=== PATIENT | male | born 1945 | race Caucasian/White ===

== ENCOUNTER → 2016-08-18 | Outpatient (CLI) | payer BC ==
[~2016-08-18] MED LIST: IBUP-103 PO
[2016-08-18 13:10] LABS: LYME DISEASE AB IGG NEG (NEG); LYME DISEASE AB IGM NEG (NEG)
== END | disposition home or self-care (01) ==
LOC: C.LAB 11:34
PROVIDERS: ATTEND Family Medicine
DX: S30.861A Insect bite (nonvenomous) of abdominal wall, initial encounter (principal); X58.XXXA Exposure to other specified factors, initial encounter

== ENCOUNTER → 2017-07-22 | Outpatient (CLI) | payer BC ==
--- NOTE | 2017-07-22 13:10 | DIAGNOSTIC IMAGING REPORT ---
RIGHT LOWER EXTREMITY VENOUS DOPPLER HISTORY: Right leg pain and swelling. COMPARISON STUDY: None. FINDINGS: There is normal compressibility, flow, and augmentation within the right lower extremity deep venous system. 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 IMPRESSION: No DVT within the right lower extremity. 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 Electronically signed by: Ashkan Linder M.D. 07/22/2017 1:09 PM Dictated Date/Time: 07/22/2017 1:08 PM
== END | disposition home or self-care (01) ==
LOC: C.ULTRBC 12:42
PROVIDERS: ATTEND Student in an Organized Health Care Education/Training Program
DX: Z86.79 Personal history of other diseases of the circulatory system (principal); I82.811 Embolism and thrombosis of superficial veins of right lower extremity

== ENCOUNTER 2024-02-11 08:26 | Observation (INO) ==
--- NOTE | 2024-01-03 15:56 | PAT Medication Instructions ---
Medication Instructions Date of Service January 03, 2024 Home Medications ibuprofen 200 mg tablet (Advil) 200 mg PO Q6H PRN Pain sjqjdxjcdouw-zadxkahy-msbkgw tablet 1 tab PO QAM triamcinolone acetonide 0.1 % topical cream 1 applic topical BID PRN tick bites Bio-Guard 1 dose PO UD PRN gerd ASK your surgeon for instructions ibuprofen 200 mg tablet (Advil) 200 mg PO Q6H PRN Pain STOP taking 2 weeks before surgery (or as soon as possible if surgery is within 2 weeks) Bio-Guard 1 dose PO UD PRN gerd fmdgdigjlvtb-jcrgsiop-vvsrnk tablet 1 tab PO QAM STOP taking 24 hours before surgery triamcinolone acetonide 0.1 % topical cream 1 applic topical BID PRN tick bites MORNING OF SURGERY: NOTHING TO EAT OR DRINK AFTER MIDNIGHT Other Notes If you have any questions please call us at [phone] or [phone] or [phone] or [phone]
--- NOTE | 2024-01-13 14:18 | Anesthesiology Consultation ---
Date of Service January 13, 2024 Assessment & Plan (1) Encounter for pre-operative examination: - message sent to OR and surgeon's office regarding patient's reported history of syncope with initial attempts to be ambulatory after surgery. - Outpatient joint assessment: Patient is currently scheduled for inpatient pathway. If re-evaluated and patient/surgeon requests outpatient pathway, patient is not acceptable candidate for outpatient joint program from anesthesia standpoint. Chart Review Chart Review: Acceptable Risk for Surgery and Patient seen in Pre Admission Testing Teaching & Discussion Pre-Anesthesia Teaching/Discussion Notes: Instructed NPO after midnight before surgery, except medications with 15 cc of water. Medication instructions provided according to the PAT guidelines. History Surgery Operation Date: 02/11/24 08:50 Proposed Procedures p Left Total Knee Arthroplasty - Raghav Galaviz MD Height/Weight Height: 6 ft 1 in Weight: 101.6 kg Allergies Allergy/AdvReac Type Severity Reaction Status Date / Time No Known Allergies Allergy Verified 01/01/24 15:14 Medications Home Medications Medication Instructions Recorded Confirmed Last Taken ibuprofen 200 mg tablet (Advil) 200 mg PO Q6H PRN Pain 10/23/21 01/01/24 Unknown dmotvewfaepe-ogrtkvsm-mafrmd tablet 1 tab PO QAM 10/23/21 01/01/24 10/26/21 triamcinolone acetonide 0.1 % 1 applic topical BID PRN tick bites 10/23/21 01/01/24 Unknown topical cream Bio-Guard 1 dose PO UD PRN gerd 01/01/24 01/01/24 Unknown Past Medical History Medical History (Updated 01/15/24 @ 09:55 by Corrie Stallings PA-C) Chronic back pain GERD (gastroesophageal reflux disease) infrequent History of blood transfusion [place]-operatively History of prostate cancer (~2006) radiation and surgery-completed radiation 2008 History of syncope history of syncope after surgery when first having attempts at standing and walking post-op IBS (irritable bowel syndrome) Osteoarthritis Patient denies h/o stroke, seizures, heart attack, heart failure, DM, HTN, or blood clots/DVTs. Exercise / Class Metabolic Activity II 4-5 Yardwork/Stairs/Walk up hill (denies chest discomfort or shortness of breath with one flight of stairs) Past Family History Family History Brother Prostate cancer Brother Prostate cancer Past Surgical History Surgical History Cyst of soft tissue (2021) [place]-Anal Fusion of spine x2 (lumbar area/hardware intact) H/O non-cataract eye surgery right eye>retina repair History of carpal tunnel release right/left History of colonoscopy History of esophagogastroduodenoscopy (EGD) History of tooth extraction Hx of arthroscopic knee surgery right/left Hx of cataract extraction right Hx of prostatectomy Hx of vasectomy Past Anesthesia History No Family Hx of Anesthesia Complications and Other (history of syncope after surgery when first having attempts at standing and walking) History of PONV No Hx of PONV and No Hx of Motion Sickness Social History Smoking Status: Current some day smoker tobacco type: cigars Smoking cigarettes per day: occas. cigar (last one was September 2023 on father's day)>aware of npo Do You Dip or Chew Tobacco: No Hx Alcohol Use: Yes Alcohol type: beer alcohol intake frequency: a few times a week Hx Substance Use: No substance use type: does not use Review of Systems Snoring, denies witnessed apneas. Patient denies chest pain, shortness of breath, dyspnea on exertion, fever, chills, cough, wheezing, or palpitations. Physical Exam Vital Signs Vitals BP 131/81 P 66 TEMP 98.0 SP02 95% on RA RESP 18 Physical Patient resting comfortably in chair in no acute distress, alert and oriented, responding appropriately throughout visit Full cervical extension range of motion without pain TMD 3.5 finger breadths Mallampati Score 3 Dentition: partial and one chipped tooth, several caps; denies chipped or loose teeth, crowns, implants or bridges Lungs: normal respiratory effort. Good air movement, clear throughout to auscultation, no adventitious breath sounds Cardiac: regular rate and rhythm, no murmurs noted Carotid arteries: negative bruit bilat Lab Results Anesthesia Preop Results Results Anesthesia Widget: WBC 8.98 K/ul (4.8-10.8) 01/13/24 Hgb 16.0 g/dl (14.0-18.0) 01/13/24 Hct 46.4 % (42.0-52.0) 01/13/24 Plt 340 K/uL (130-400) 01/13/24 Na 139 mmol/L (136-145) 01/13/24 K 4.2 mmol/L (3.5-5.1) 01/13/24 Cl 106 mmol/L (98-107) 01/13/24 CO2 27 mmol/L (21-32) 01/13/24 BUN 17 mg/dl (6-23) 01/13/24 Creat 1.13 mg/dl (0.6-1.4) 01/13/24 Glucose Level 90 mg/dl (70-99(Fasting)) 01/13/24 PT 10.9 Seconds (9.0-12.0) 01/13/24 PTT 27 Seconds (21-31) 01/13/24 INR 1.0 (0.9-1.1) 01/13/24 Blood Type O Positive 01/13/24 Antibody Screen NEGATIVE 01/13/24 Testing Electrocardiogram Date: 01/13/24 NSR, rate 63 bpm Incomplete RBBB Chest X-Ray Date: 01/13/24 No active disease in the chest.
--- NOTE | 2024-02-06 07:25 | History & Physical Report ---
Date of Service February 06, 2024 Assessment & Plan (1) Osteoarthritis of left knee: 78-year-old gentleman with advanced left knee arthritis which has progressed significantly over the past year. He is failed conservative measures. He would like to proceed with left knee replacement. Plan: We are going to take him to the operating do a left total knee replacement. The risks Mente this procedure explained the patient in detail. He understands and desires to proceed. Informed consent was obtained. As far as DVT prophylaxis will plan on thigh-high teds, SCDs, aspirin twice a day. He is planned to be discharged to home with some home health and his 's assistance. History of Present Illness Chief Complaint: . Persistent left knee pain discomfort and swelling. Primary Care Provider: Kristin Weems . Patient is a 78-year-old gentleman who now presents for surgical treatment of his left knee. He has about a year and a half history of persistent progressive increasing left knee pain discomfort and swelling unresponsive to conservative care. Has had several aspirations and injections which have provided pretty minimal relief. Pain is mostly medial but some global pain. He is limping more as time goes on. He would like to have his knee fixed. Allergies Allergy/AdvReac Type Severity Reaction Status Date / Time No Known Allergies Allergy Verified 01/01/24 15:14 Home Medications Medication Instructions Recorded Confirmed Type ibuprofen 200 mg tablet (Advil) 200 mg PO Q6H PRN Pain 10/23/21 01/01/24 History ytkihxtesqzf-grfnvijr-hmvocd tablet 1 tab PO QAM 10/23/21 01/01/24 History triamcinolone acetonide 0.1 % 1 applic topical BID PRN tick bites 10/23/21 01/01/24 History topical cream Bio-Guard 1 dose PO UD PRN gerd 01/01/24 01/01/24 History Past Med/Surg History Problem List Sensorineural hearing loss (SNHL) of right ear with restricted hearing of left ear Acoustic trauma of right ear 12/17/23 Effusion, left knee 07/29/23 Osteoarthritis of left knee Osteoarthritis of knees, bilateral History of removal of cyst (10/27/21) [place]-Anal Soft Tissue Cyst Excision - Leonard Guerra, DO Encounter for pre-operative examination Cyst of soft tissue 10/18/21 Soft tissue abscess 09/11/21 Tinnitus Encounter for pre-operative examination Medical History History of syncope history of syncope after surgery when first having attempts at standing and walking post-op GERD (gastroesophageal reflux disease) infrequent History of blood transfusion [place]-operatively IBS (irritable bowel syndrome) History of prostate cancer (~2006) radiation and surgery-completed radiation 2008 Chronic back pain Osteoarthritis Surgical History Cyst of soft tissue (2021) [place]-Anal Hx of vasectomy History of tooth extraction H/O non-cataract eye surgery right eye>retina repair Fusion of spine x2 (lumbar area/hardware intact) History of esophagogastroduodenoscopy (EGD) Hx of cataract extraction right History of colonoscopy Hx of arthroscopic knee surgery right/left History of carpal tunnel release right/left Hx of prostatectomy Family History Brother Prostate cancer Brother Prostate cancer Social History Smoking Status: Current some day smoker Tobacco Type: Cigars Cigarettes Per Day: occas. 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 Physical Exam . Physical examination was a pleasant middle-age male. Examination left knee reveal patient walks with a slight bit of a limp. Got a small knee effusion. Tender with medial joint line. Range of motion is full extension to 125 degrees of flexion. No particular pain with hip motion. No instability. Negative straight leg raise. He is neurologically intact. Constitutional WD/WN, vitals as above Respiratory normal respiratory effort, lungs clear to auscultation Cardiovascular RRR, no murmur, no edema Gastrointestinal (Abdomen) normal bowel sounds, soft, nontender, no hepatosplenomegaly Results & Data Results & Data Laboratory Results . Diagnostic Findings . X-rays of the knee were reviewed. It shows advanced medial compartment arthritis. Is got complete loss of the medial joint space. This has progressed since his most recent x-rays about 10 months ago. PG Care Time/CCT Total # of Minutes Spent Total Time Spent with Patient: Total time spent is greater than 50% in coordination of care (as documented) at patient's floor/unit and/or counseling patient: Coding Level of Care Code None Diagnoses Osteoarthritis of left knee M17.12
[~2024-02-11 08:26] MED LIST changes: +BUPIVACAINE 0.5 % 5 MG/1 ML PF 10ML VIAL ONE; -IBUP-103 PO; +ROPIVACAINE 0.5% 5 MG/ML 30 ML VIAL ONE
--- NOTE | 2024-02-11 08:34 | History & Physical Bridge Note ---
Date of Service February 11, 2024 History & Physical Bridge Note I have examined the patient, reviewed the History & Physical and in the interval since the performance of the History & Physical I have noted the following changes of clinical significance: no changes noted
--- NOTE | 2024-02-11 09:02 | History & Physical Bridge Note ---
Date of Service February 11, 2024 History & Physical Bridge Note I have examined the patient, reviewed the History & Physical and in the interval since the performance of the History & Physical I have noted the following changes of clinical significance. Patient desiring injection into right knee under anesthesia. Will add to consent and inject right knee before proceeding with Left Knee Replacement. Consent signed. No other changes.
[2024-02-11] MEDS: LR 60ML/HR IV SCH (09:10)
[2024-02-11] MEDS: CeleBREX 200 MG CAP PO SCH (09:10)
[2024-02-11] MEDS: METOCLOPRAMIDE HCL 10 MG TABLET PO SCH (09:10)
[2024-02-11] MEDS: ACETAMINOPHEN 500 MG TAB PO SCH ×2 (09:10→20:19)
[2024-02-11] MEDS: FAMOTIDINE 20 MG TAB PO SCH (09:10)
[2024-02-11] MEDS ORDERED: fentaNYL citrate PF 100 MCG/2 ML VIAL ONE (09:27)
[2024-02-11] MEDS ORDERED: MIDAZOLAM HCL 1 MG/ML 2ML VIAL ONE (09:27)
[2024-02-11] MEDS ORDERED: PROPOFOL IV EMULSION 10 MG/ML 20 ML VIAL IV ONE ×2 (09:27→12:39)
[2024-02-11] MEDS: LR 500ML BOLUS, THEN 15ML/HR IV SCH (10:03)
[2024-02-11] MEDS ORDERED: BUPIVACAINE 0.5 % 5 MG/1 ML PF 10ML VIAL ONE (10:59)
[2024-02-11] MEDS: ceFAZolin 2000MG 2,000 MG/15 ML SYR IV SCH ×2 (11:14→18:21)
[2024-02-11] MEDS: BETAMETH SOD PHOS/ACETATE IA 6 MG/ML IM STA (11:18)
[2024-02-11] MEDS: ROPIV 0.5% 246mg, Ketorolac 30mg, EPINEPHrine 0.5mg in NSS INFIL SCH (11:52)
[2024-02-11] MEDS: ORTHO JOINT ANESTHETIC ONE (11:53)
[2024-02-11] MEDS: TRANEXAMIC ACID 1,000 MG **IV Intra-op IV SCH (12:10)
[2024-02-11] MEDS ORDERED: ONDANSETRON INJ 2 MG/ML 2 ML VIAL ONE (12:39)
--- NOTE | 2024-02-11 13:05 | Operative Report ---
PG Post Operative Report Pre & Post Diagnosis Operation Date: 02/11/24 10:40 Pre-Op Diagnosis: Left Knee Osteoarthritis Right knee arthritis Post-Op Diagnosis: Left Knee Osteoarthritis Right knee arthritis I identified the patient and participated in the time-out.: Yes Procedure Operation Date: 02/11/24 10:40 Actual Procedures p Left Total Knee Arthroplasty, Cemented(Left) - Raghav Galaviz MD Steroid injection into the right knee Surgeon Raghav Galaviz MD Grades 1 6 Tutor Zeeshan Saini PA-C Estimated Blood Loss 50 Findings Consistent with Post-Op Diagnosis Operative findings revealed advanced left knee medial compartment DJD. He had pretty extensive grade 4 disease of the medial compartment including the medial femoral condyle medial tibial plateau. Not much eburnation but full-thickness cartilage loss. The rest the knee looked pretty good. Some mild to moderate patellofemoral disease. Minimal lateral compartment disease. Moderate-sized joint effusion. Specimens Left knee sent for pathology. Anesthesia Type Spinal MAC Complications none Disposition Accompanied Patient To Recovery: No Indications The patient is a 78-year-old gentleman whose had a recent history of fairly acute onset of knee pain discomfort and recurrent swelling. He been seen in clinic and treated conservatively. Over the past 6 months x-rays show progressive medial compartment arthritis. He may have failed conservative measures. He elected proceed with left total knee arthroplasty. Description of Procedure Operative implants consist of: 1. Biomet Vanguard size 72.5 left posterior stabilized femoral component. 2. Biomet size 79 tibial tray. 3. 10 mm posterior stabilized polyethylene insert. 4. 34 x 8-1/2 all poly patella. The patient was taken the op room, identified, placed on the operating table in the supine position. All conductors were appropriately padded. IV antibiotics tried by anesthesia team. Spinal anesthetic and adductor canal block had been provided in the holding area. Left factor was then placed. The left lower extremity was then prepped and draped in usual sterile fashion. The left leg was elevated and exsanguinated with use of an Esmarch and a turn was placed at 300 mmHg. An anterior approach to the left knee was then performed to longitudinal incision centered over the patella. Sharp dissection was carried through subcutaneous tissue down the extensor mechanism. A medial parapatellar arthrotomy incision was made. Some subperiosteal dissection was carried out medially. The fat pad was dissected from Neath patella tendon. The lateral patellofemoral ligament was released. Patella subluxated laterally and the knee was flexed. The osteophytes taken off distal femur. The ACL and PCL were then released from distal femur the tibia subluxated anteriorly. The external tibial alignment jig was then placed on the anterior face the tibia and adjusted 14 mm medially. Proximal tibial cut was then made to take about millimeter or 2 of bone from the medial side. The tibia sized to a size 79. Attention drawn the femur. The distal femur examined the sharp drop with intramedullary canal was suction. A left 6 degree valgus cutting guide was placed. The distal femoral cutting block was pinned in place. This femoral cut was made to take an additional 3 mm of bone off distal femur. The femur was then sized to a size 72.5. The AP cutting block was pinned parallel to the epicondylar axis which was 4 degrees of external rotation. The anterior cut, anterior chamfer, posterior cut, posterior chamfer cuts were made. The box cutting guide was placed and just slight lateral box cut was made. The knee was flexed. The remnants of the medial and lateral menisci were excised. The osteophytes taken off the posterior aspect the femur. A trial femoral component was placed. The tibial tray was pinned Shannan external rotation and the drill and stem punch were used to create defect in proximal tibia for the tibial tray. The knee was then trialed and the 10 mm insert fit most appropriately. Attention drawn the patella. The patella was cleaned of all soft tissues. Patella thickness measured 23 mm in thickness and was cut down to 14. Was sized to a size 34 patella. The lug holes were drilled for 34 patella. The lateral osteophytes removed. Patella button was placed. Knee was taken through range of motion patella tracked nicely with no thumbs test. Attention was then drawn toward placing the permanent components. All trial components were removed. Bone plug was placed in the distal femur limit blood loss. A double batch [place] G cement was mixed. A Biomet Vanguard size 72.5 left posterior stabilized femoral component, a size 79 tibial tray, 10 mm posterior stabilized polyethylene insert, and a 34 x 8 and half all poly patella were then cemented in place. The knee was brought out into full extension till cement hardened. Final cement check was then performed. The pe ricapsular tissues were injected with a total of 100 cc of Ortho mix. Patient did receive 1 g tranexamic acid. The tourniquet was then let down for final treatment time 55 minutes. Hemostasis assured use electrocautery. Extensor Meclomen closed with combination 1 PDS suture and 1 Vicryl suture in a [id number] fashion. Extensor Meclomen checked found to be intact with the subcutaneous tissues then closed with 2 Dexon suture in a buried interrupted fashion the skin was closed with skin hanny. Leg was then cleaned and dried and sterile dressed with Xeroform, 4 x 4's, sterile cast padding, Rai bandage were applied. Patient then transferred to the recovery room in stable condition. Patient tolerated procedure well and there were no complications. Zeeshan Saini, my physician medical assistant, was present for the entire procedure. His assistance was essential and required for appropriate patient positioning, prepping and draping, surgical exposure, performing the technical details of the operation, placement the implants, closure of the wound, and placement of the sterile bandage. I attest to the content of the Intraoperative Record and any orders documented therein. Any exceptions are noted below.
[2024-02-11] MEDS ORDERED: MAGNESIUM HYDROXIDE SUSP 30 ML UDC PO PRN (14:28)
[2024-02-11] MEDS ORDERED: bisacodyL 10 MG SUPP PR PRN (14:28)
[2024-02-11] MEDS ORDERED: ONDANSETRON INJ 2 MG/ML 2 ML VIAL IV PRN (14:28)
[2024-02-11] MEDS ORDERED: HYDROmorphone INJ 0.5 MG/0.5 ML SYR IV PRN (14:28)
[2024-02-11] MEDS ORDERED: ALUMINUM/MAGNESIUM SUSP 30 ML UDC PO PRN (14:28)
[2024-02-11] MEDS ORDERED: NALOXONE HCL 0.4 MG/1 ML VIAL/CARP IV PRN (14:28)
[2024-02-11] MEDS ORDERED: [UNRECOGNIZED DRUG - OTHER] PO PRN (14:28)
[2024-02-11] MEDS ORDERED: oxyCODONE HCL IR 5 MG TAB (IMMEDIATE RELEASE) PO PRN (14:28)
[2024-02-11] MEDS ORDERED: TRIAMCINOLONE ACET 0.1% CR 15 GM TUBE TOP PRN (14:28)
[2024-02-11] MEDS ORDERED: METOCLOPRAMIDE HCL INJ 5 MG/ML 2 ML VIAL IV PRN (14:28)
--- NOTE | 2024-02-11 14:32 | Anesthesiology Progress Note ---
Date of Service February 11, 2024 Anesthesia Post Procedure Vital Signs Vital Signs: Temp Pulse Pulse Resp BP BP Pulse Ox 02/11/24 14:07 97.3 F L 65 20 137/73 94 02/11/24 13:55 67 16 127/72 95 02/11/24 13:45 69 22 143/79 H 93 02/11/24 13:35 60 13 123/69 94 02/11/24 13:25 97.7 F 61 15 128/70 95 02/11/24 13:15 79 17 129/71 95 02/11/24 13:05 81 18 129/67 95 02/11/24 12:57 96.8 F L 96 H 12 129/67 94 02/11/24 08:53 97.9 F 58 L 16 150/80 H 97 O2 Del Method 02/11/24 14:07 Room Air 02/11/24 13:55 Room Air 02/11/24 13:45 Room Air 02/11/24 13:35 Room Air 02/11/24 13:25 Room Air 02/11/24 13:15 Room Air 02/11/24 13:05 Room Air 02/11/24 12:57 Room Air 02/11/24 08:53 Room Air Pain Intensity Left Knee: Pain Intensity: 3 Transfer of Care Handoff Completed per policy Notes Mental Status: alert / awake / arousable and participated in evaluation Patient Amnestic to Procedure: Yes Nausea / Vomiting: adequately controlled Pain: adequately controlled Airway Patency, RR, SpO2: stable & adequate BP & HR: stable & adequate Hydration State: stable & adequate Neuraxial Anesthesia: was administered and sensory block is resolving Anesthetic Complications: no major complications apparent and Pt Satisfied with anesthetic care
--- NOTE | 2024-02-11 15:08 | Operative Report ---
PG Post Operative Report Pre & Post Diagnosis Operation Date: 02/11/24 10:40 Pre-Op Diagnosis: Bilateral Knee Osteoarthritis Post-Op Diagnosis: Bilateral Knee Osteoarthritis I identified the patient and participated in the time-out.: Yes Procedure Operation Date: 02/11/24 10:40 Actual Procedures p Left Total Knee Arthroplasty, Cemented(Left) - Raghav Galaviz MD Right knee steroid injection Surgeon Raghav Galaviz MD Environmental Maintenance Worker Zeeshan Saini PA-C Estimated Blood Loss 50 Findings Consistent with Post-Op Diagnosis Specimens None Anesthesia Type Spinal MAC Complications none Disposition Accompanied Patient To Recovery: No Indications Patient is a 78-year-old gentleman with history of bilateral knee pain discomfort. He was scheduled for a left knee replacement. He elected to proceed with a right knee injection prior to the left knee replacement procedure. Description of Procedure Prior to the total knee replacement procedure performed on his left knee today, a right knee steroid injection was provided. The right knee was prepped with alcohol. 2 cc of Celestone and 8 cc Marcaine injected in the right knee in a sterile fashion. A Band-Aid was applied followed by his Andres stockkiarra. I attest to the content of the Intraoperative Record and any orders documented therein. Any exceptions are noted below.
--- OUTSIDE RECORDS SUMMARY | 2024-02-11 15:32 | External Medical Summary | Continuity of Care Document ---
Author Name Unknown Organization [facility] [id number] [place] [address] [phone] Care Team Providers Care Fashion Artist Name Role Phone Kristin Weems Primary Care Physician [phone] Encounter [facility] [id number] Date(s): 01/15/24 - 01/15/24 [facility] [place] [address] [address] [phone] Encounter Diagnosis H/O prostate cancer(Discharge Diagnosis) - 01/15/24 Encounter for subsequent annual wellness visit (AWV) in Medicare patient (Discharge Diagnosis) - 01/15/24 Nocturia(Discharge Diagnosis) - 01/15/24 Body mass index [BMI] 29.0-29.9, adult(Discharge Diagnosis) - 01/15/24 Low back pain(Discharge Diagnosis) - 01/15/24 Urine incontinence(Discharge Diagnosis) - 01/15/24 Infected sebaceous cyst(Discharge Diagnosis) - 01/15/24 Discharge Disposition: Home or Self Care Attending Physician: MD Weems Dongsheng Allergies, Adverse Reactions, Alerts No Known Allergies Assessment and Plan Extracted from: Title:Office Visit Note Author:MD Weems Dongsh eng Date:01/15/24 1.Encounter for subsequent annual wellness visit (AWV) in Medicare patient see separate note 2.H/O prostate cancer check psa 3.Nocturia check psa 4.Urine incontinence STATUS: Chronic stable: Chronic uncontrolled: x since postop Acute uncomplicated: Acute illness with systemic symptoms: Undiagnosed new problems with uncertain prognosis: Chronic illnesses with exacerbation, progression, or side effects of treatment: 1 acute complicated injury: DATA: Review of prior external note(s) from each unique source: Review of the result(s) of each unique test: Ordering of each unique test: x Assessment requiring independent historian(s): GOAL: Reduce symptoms PLAN: ordered psa.Kegel exercise. f/u urology in [place] 5.Low back pain STATUS: Chronic stable: Chronic uncontrolled: x Acute uncomplicated: Acute illness with systemic symptoms: Undiagnosed new problems with uncertain prognosis: Chronic illnesses with exacerbation, progression, or side effects of treatment: 1 acute complicated injury: DATA: Review of prior external note(s) from each unique source: Review of the result(s) of each unique test: Ordering of each unique test: Assessment requiring independent historian(s): GOAL: Reduce symptoms PLAN: f/u ortho. has fusion surgery x 2. on vit D. 6.Infected sebaceous cyst STATUS: Chronic stable: Chronic uncontrolled: Acute uncomplicated: x Acute illness with systemic symptoms: Undiagnosed new problems with uncertain prognosis: Chronic illnesses with exacerbation, progression, or side effects of treatment: 1 acute complicated injury: DATA: Review of prior external note(s) from each unique source: Review of the result(s) of each unique test: Ordering of each unique test: Assessment requiring independent historian(s): GOAL: Resolution PLAN: ordered keflex.advised to removal at his derm visit. call prn.f/u 1 yr AWV Immunizations Given and Recorded Vaccine Date Status Refusal Reason influenza virus vaccine, inactivated 03/22/23 Baron rded influenza virus vaccine, inactivated 12/28/20 Give n influenza virus vaccine, inactivated 12/30/18 Give n influenza virus vaccine, inactivated 01/07/18 Give n influenza virus vaccine, inactivated 12/17/16 Give n influenza virus vaccine, inactivated 01/31/16 Give n influenza virus vaccine, inactivated 01/21/15 Give n influenza virus vaccine, inactivated 1 01/13/14 Re corded influenza virus vaccine, inactivated 2 01/09/13 Re corded influenza virus vaccine, inactivated 01/04/12 Baron rded tetanus/diphtheria/pertuss, acel (Tdap) 12/31/22 R ecorded tetanus/diphtheria/pertuss, acel (Tdap) 03/13/10 R ecorded SARS-CoV-2 mRNA (Pfizer 12+) bivalent 02/24/22 Rec orded SARS-CoV-2 mRNA ([id number]) 10/28/21 Re corded zoster vaccine, inactivated 04/03/21 Recorded zoster vaccine, inactivated 3 07/18/20 Recorded SARS-CoV-2 (COVID-19) mRNA BNT-162b2 vax 02/14/21 Recorded SARS-CoV-2 (COVID-19) mRNA BNT-162b2 vax 01/06/21 Recorded SARS-CoV-2 (COVID-19) mRNA BNT-162b2 vax 07/07/20 Recorded SARS-CoV-2 (COVID-19) mRNA BNT-162b2 vax 4 06/15/20 Recorded SARS-CoV-2 (COVID-19) mRNA BNT-162b2 vax 06/06/20 Recorded SARS-CoV-2 (COVID-19) mRNA BNT-162b2 vax 5 05/25/20 Recorded pneumococcal 13-valent vaccine 01/31/16 Given pneumococcal 23-valent vaccine 01/31/12 Recorded 1Result Comment: Route: Intramuscularly Center Rep: [employer] [facility] 2Result Comment: Route: Intramuscularly Center Rep: [employer] 3Result Comment: Left deltoid 4Result Comment: 2020-07-18: Historical information-source unspecified 5Result Comment: 2020-07-18: Historical information-source unspecified Medications Keflex 500 mg oral capsule Start: 01/15/24 4:29:00 PM EDT, 1 cap, PO, q8h, Disp# 21 cap, Pharmacy: [id number] Start Date: 01/15/24 Stop Date: 01/22/24 Status: Ordered triamcinolone 0.1% topical cream Start: 02/25/23 10:20:00 AM EST, 1 appl, topical, bid, Disp# 30 g, Refills: 3, apply to itchy areason legs, Pharmacy: [id number] Start Date: 02/25/23 Status: Ordered Mental Status 01/15/24 Barriers to Learning one year None evide nt Communication Barrier Present No Health Literacy Communication Barriers N ever Primary Language [place] Problem List Condition Confirmation Course Effective Dates Status Health St at[facility] Informant Back pain Confirmed Active Diarrhea Confirmed Active H/O spinal stenosis Confirmed Active H/O prostate cancer Confirmed Active ED (erectile dysfunction) Confirmed Active Low back pain Confirmed Active Nocturia Confirmed Active Lumbar spinal stenosis Confirmed Active Urine incontinence Confirmed Active Diagnosis Diagnosis Type Effective Dates Health Status Clinical Service Informant Urine incontinence Discharge Diagnosis 01/15/24 Non-Specified H/O prostate cancer Discharge Diagnosis 01/15/24 Non-Specified Encounter for subsequent annual wellness visit (AWV) in Medicare patient Discharge Diagnosis 01/15/24 Non-Specified Infected sebaceous cyst Discharge Diagnosis 01/15/24 Non-Specified Low back pain Discharge Diagnosis 01/15/24 Non-Specified Nocturia Discharge Diagnosis 01/15/24 Non-Specified Body mass index [BMI] 29.0-29.9, adult Discharge Diagnosis 01/15/24 Non-Specified Procedures Procedure Date Related Diagnosis Body Site Status Procedure 1 01/10/22 Completed Excision of virginia-anal soft tissue cyst 10/27/21 Completed Colonoscopy 2, 3 03/17/20 Complete d Plain X-ray lumbar spine normal 4 09/02/19 Completed Primary posterior decompress ion lumbar spine and fusion 5 07/15/17 Completed Spinal fusion 6 07/2017 Completed Colonoscopy 03/22/15 Completed Abnormal EMG 7, 8 08/08/11 Complet ed MRI of abdomen 9 03/21/11 Complete d Cystoscopy 02/27/11 Completed Fusion of posterior lumbar spine 12/18/10 Completed Surgery 10 2010 Completed Radiation 11 2008 Completed Prostatectomy 2006 Completed Arthroscopy 12 Completed 1Photo dynamic therapy on right eye 2- Non-bleeding internal hemorrhoids with some revealing evidence of hypertrophy - Mild diverticulosis in the sigmoid colon - The examination was otherwise normal on direct and retroflexion views. - No specimens collected. 3Repeat colonoscopy in 5 years for adenoma surveillance. If that examination reveals no concerns of polyps, repeat colonoscopy thereafter would only be considered if clinical concerns. 4stable appearance of posterior spinal fusion hardware L3-5. 5L3-L4 6L3-L4 7Moderate, demylelinating, mixed sinsory motor, medican mononueuropathies at the wrists compatible with the clinical diagnosis of "carpal tunnel syndrome" 8Both median distal sensory and distal motor latencies are moderately and essentially eqiuvalently prolonged. 9Benign cyst in the right kidney, multiple benign cysts in the liver. No acute MR finding in the abdomen, no evidence for malignancy in the abdomen. 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 LBP: chronic. stable. withfoot numbness.rare pain med. painful lesion on upper back: 3 wks. has been draining. Review of Systems No fever/chills. No headache. No respiratory symptoms. No chest pain/shortness of breath. No nausea/vomiting. No abdominal pain. No change with bowels. No other urinary symptoms. No rash. No bleeding. No anxiety/depression. Other systems reviewed and are neg. Physical Exam Vitals & Measurements HR:61(Monitored) RR:12 BP:110/80 SpO2:96% HT:184.4cm WT:101.7kg WT:101.700kg(Dosing) BMI:29.91 PHQ2 Data(Data Documented on:01/15/2024 15:54) Emotional health assessment NEGATIVE General: No acute distress. Nontoxic. Head:Normocephalic, Atraumatic. Neck:Supple, Non-tender, No thyromegaly Respiratory:Lungs are clear to auscultation, Respirations non-labored, Breath sounds equal JITENDRA. Cardiovascular:Normal rate, Regular rhythm, No murmur, Rubs, gallops. Gastrointestinal:Soft, Non-tender, Non-distended, Normal bowel sounds. Musculoskeletal:no pitting edema Integumentary:R upper back subQ mass chestnut size with tender and erythema and small drainage Neurologic:Alert, Oriented, No focal deficits. Psychiatric:Cooperative, Appropriate mood & affect. Assessment/Plan 1.Encounter for subsequent annual wellness visit (AWV) in Medicare patient see separate note 2.H/O prostate cancer check psa 3.Nocturia check psa 4.Urine incontinence STATUS: Chronic stable: Chronic uncontrolled: x since postop Acute uncomplicated: Acute illness with systemic symptoms: Undiagnosed new problems with uncertain prognosis: Chronic illnesses with exacerbation, progression, or side effects of treatment: 1 acute complicated injury: DATA: Review of prior external note(s) from each unique source: Review of the result(s) of each unique test: Ordering of each unique test: x Assessment requiring independent historian(s): GOAL: Reduce symptoms PLAN: ordered psa.Kegel exercise. f/u urology in [place] 5.Low back pain STATUS: Chronic stable: Chronic uncontrolled: x Acute uncomplicated: Acute illness with systemic symptoms: Undiagnosed new problems with uncertain prognosis: Chronic illnesses with exacerbation, progression, or side effects of treatment: 1 acute complicated injury: DATA: Review of prior external note(s) from each unique source: Review of the result(s) of each unique test: Ordering of each unique test: Assessment requiring independent historian(s): GOAL: Reduce symptoms PLAN: f/u ortho. has fusion surgery x 2. on vit D. 6.Infected sebaceous cyst STATUS: Chronic stable: Chronic uncontrolled: Acute uncomplicated: x Acute illness with systemic symptoms: Undiagnosed new problems with uncertain prognosis: Chronic illnesses with exacerbation, progression, or side effects of treatment: 1 acute complicated injury: DATA: Review of prior external note(s) from each unique source: Review of the result(s) of each unique test: Ordering of each unique test: Assessment requiring independent historian(s): GOAL: Resolution PLAN: ordered keflex.advised to removal at his derm visit. call prn.f/u 1 yr AWV Problem List/Past Medical History Ongoing Back pain Diarrhea ED (erectile dysfunction) H/O prostate cancer H/O spinal stenosis Low back pain Lumbar spinal stenosis Nevus| Status: Inactive Nocturia Urine incontinence Resolved Carpal tunnel syndrome H/O: HTN (hypertension) Infected tick bite of abdominal wall Tobacco user Procedure/Surgical History Procedure| Service Date: 01/10/2022Excision of virginia-anal soft tissue cyst| Service Date: 2Colonoscopy| Service Date: 03/17/2020Plain X-ray lumbar spine normal| Service Date: 09/02/2019Primary posterior decompression lumbar spine and fusion| Service Date: 07/15/2017Spinal fusion| Service Date: 07/2017Colonoscopy| Service Date: 03/22/2015bnormal EMG| Service Date: 0 08/08/2011MRI of abdomen| Service Date: 03/21/2011Cystoscopy| Service Date: 02/27/2011Fusion of posterior lumbar spine| Service Date: 12/18/2010Surgery| Service Date: 2010Radiation| Service Date: 2008Prostatectomy| Service Date: rthroscopy Medications cephalexin(Keflex 500 mg oral capsule), 500 mg= 1 cap, PO, q8h triamcinolone topical(triamcinolone 0.1% topical cream), 1 appl, topical, bid, 3 refills Allergies NKA No Known Medication Allergies Social History Smoking Status Never smoked cigarettes Alcohol - Low Risk Exercise - Regular exercise Tobacco - Denies Tobacco Use Family History Cancer: Mother. Cancer of colon: Mother. Colon cancer..: Mother. Esophageal cancer..: Mother. Heart attack: Father. Heart disease: Father and Father. Throat cancer...: Mother. Health Status Family Member(s) Immunizations Vaccine Date Status influenza virus vaccine, inactivated 03/22/2023 Recorded tetanus/diphtheria/pertuss, acel (Tdap) 12/31/2022 Recorded SARS-CoV-2 mRNA (Pfizer 12+) bivalent 02/24/2022 Recorded SARS-CoV-2 mRNA (pmlhclmylxj-qyqy-sax) 10/28/2021 Recorded zoster vaccine, inactivated 04/03/2021 Recorded SARS-CoV-2 (COVID-19) mRNA BNT-162b2 vax 02/14/2021 Recorded SARS-CoV-2 (COVID-19) mRNA BNT-162b2 vax 01/06/2021 Recorded influenza virus vaccine, inactivated 12/28/2020 Given zoster vaccine, inactivated 07/18/2020 Recorded Comments : Left deltoid SARS-CoV-2 (COVID-19) mRNA BNT-162b2 vax 07/07/2020 Recorded SARS-CoV-2 (COVID-19) mRNA BNT-162b2 vax 06/15/2020 Recorded Comments : 2020-07-18: Historical information-source unspecified SARS-CoV-2 (COVID-19) mRNA BNT-162b2 vax 06/06/2020 Recorded SARS-CoV-2 (COVID-19) mRNA BNT-162b2 vax 05/25/2020 Recorded Comments : 2020-07-18: Historical information-source unspecified influenza virus vaccine, inactivated 12/30/2018 Given influenza virus vaccine, inactivated 01/07/2018 Given influenza virus vaccine, inactivated 12/17/2016 Given pneumococcal 13-valent vaccine 01/31/2016 Given influenza virus vaccine, inactivated 01/31/2016 Given influenza virus vaccine, inactivated 01/21/2015 Given influenza virus vaccine, inactivated 01/13/2014 Recorded Comments : Route: Intramuscularly Center Rep: [employer] influenza virus vaccine, inactivated 01/09/2013 Recorded Comments : Route: Intramuscularly Center Rep: Sanofi Pasteur pneumococcal 23-valent vaccine 01/31/2012 Recorded influenza virus vaccine, inactivated 01/04/2012 Recorded tetanus/diphtheria/pertuss, acel (Tdap) 03/13/2010 Recorded Recommendations Health Maintenance Pending(in the next year) OverDue Adult Influenza Vaccine due10/06/23and every 1year Due Adult Social Determinants of Health Screening due01/15/24Unknown Frequency Satisfied(in the past 1 year) Satisfied Adult Influenza Vaccine on03/22/23.Satisfied by KATHERINE Jc Emma Body Mass Index on01/15/24.Satisfied by KATHERINE Hodgson Paul Medicare Annual Wellness Visit on01/15/24.Satisfied by MD Weems Dongsheng Electronic Signature on File Electronically Reviewed/Signed by: Kristin Weems MD Author Signature Dt/Tm:01/15/2024 04:38 PM Department of Family Medicine DJ * MD Weems Dongsheng: PERFORM Event Display: Medicare Annual Wellness Visit Note Authored Date: [id number] Name:NALDO BRAND Patient Number: [id number] : 1945 Date of Service: 01/15/2024 Medicare Annual Wellness Visit Subsequent MAWV: Any MAWV performed after the Initial x_ Additional diagnosis with separately identified service provided per additional note. Vitals & Measurements HR:61(Monitored) RR:12 BP:110/80 SpO2:96% HT:184.4cm WT:101.7kg WT:101.700kg(Dosing) BMI:29.91 The Patient's BMI is over 25 which is considered overweight. _x Based on shared decision-making, no further intervention will be pursued at this time. _This is a chronic problem and is addressed in continuity. _Recommendations for resources, monitoring, support, safety, and surveillance were reviewed. _This warrants further evaluation at a follow-up or concurrent visit. Pain Assessment Pain Score: 1 Pain Severity: Mild Acceptable pain score: 0 Opioid use Assessment: Opioid use and pain severity reviewed in medication reconciliation and vital signs. Chart review and inquiry of patient finds NO USE of opioids. PHQ2 Data(Data Documented on:01/15/2024 15:54) Emotional health assessment NEGATIVE Patient Self/Mood Assessment: x Based on shared decision-making, no further intervention will be pursued at this time. _ This is a chronic problem and is addressed in continuity. _ Recommendations for resources, monitoring, support, safety, and surveillance were reviewed. _ This warrants further evaluation at a follow-up or concurrent visit. Assessment/Plan Hearing Screening Do you have any hearing problems, or have others told you that you might?Left Hearing Aide, RightHearing Aide Comments Struggle to hear/understand conversation? Sometimes f/u audiology regularly Have any known hearing problems? Sometimes same as above Hearing Assessment PROVIDER DIRECT OBSERVATION-MUST COMPLETE x No hearing problems were directly observed with this patient today. _Hearing problems were observed with this patient today and the plan is: _. PLAN-MUST COMPLETE FOR POSITIVE FINDING FROM PATIENT OR DIRECT OBSERVATION xBased on shared decision-making, no further intervention will be pursued at this time. _This is a chronic problem and is addressed in continuity. _Recommendations for resources, monitoring, support, safety, and surveillance were reviewed. _This warrants further evaluation at a follow-up or concurrent visit. Orientation Memory Concentration Test (OMCT) Orientation Score Indication:None or no significant cognitive impairment (0-4) Cognitive Screening (IF OMCT 0-4, no further assessment required) x Based on shared decision-making, no further intervention will be pursued at this time. _This is a chronic problem and is addressed in continuity. _Recommendations for resources, monitoring, support, safety, and surveillance were reviewed. _This warrants further evaluation at a follow-up or concurrent visit. Activities of Daily Living Assistance Assessment Comments Do you need help using the phone? No Do you need help managing your finances? No Do you need help shopping? (clothes, groceries, etc.) No Do you find you need help that is not available to you? No Do you need help preparing meals? No Do you need help keeping track of and taking your medications? No Do you need help getting to bed or to the toilet? No Do you need help to eat, bathe, or dress? No Do you need help walking? No Do you need help with transportation? No Do you ever go without a seatbelt in the car? No Do you need help with doing housework (cleaning, laundry)? No ADL/IADL Assessment PROVIDER DIRECT OBSERVATION-MUST COMPLETE _xThe patient did not require help in the office today (e.g. with iADL/ADLs). _Patient required assistance in the office today (e.g. with iADL/ADLs) and the plan is: _. PLAN-MUST COMPLETE FOR POSITIVE FINDING FROM PATIENT OR DIRECT OBSERVATION _xBased on shared decision-making, no further intervention will be pursued at this time. _This is a chronic problem and is addressed in continuity. _Recommendations for resources, monitoring, support, safety, and surveillance were reviewed. _This warrants further evaluation at a follow-up or concurrent visit. Falls Assessment Are you permanently unable to walk? No Have you fallen more than once in the past year? No Have you fallen and hurt yourself in the past year? No Is it hard for you to climb stairs or walk short distances? No Do potential fall hazards exist in your home? (e.g. loose rugs, poor lighting, new/unfamiliar surroundings, uneven floors, household clutter) Loose rugs - Advised him to remove them Do these safety features exist in your home? (e.g. bathroom grab bars, stair handrails) Stair handrails Falls Assessment PROVIDER DIRECT OBSERVATION-MUST COMPLETE _xThere was no difficulty with the patients ambulation observed today. _The patient was observed to have difficulty with ambulation today. The plan is: _. PLAN-MUST COMPLETE FOR POSITIVE FINDING FROM PATIENT OR DIRECT OBSERVATION _xBased on shared decision-making, no further intervention will be pursued at this time. _This is a chronic problem and is addressed in continuity. _Recommendations for resources, monitoring, support, safety, and surveillance were reviewed. _This warrants further evaluation at a follow-up or concurrent visit. Incontinence Plan Comments Do you have difficulty getting to the bathroom on time? No Do you leak urine when you do not want to, such as when coughing, sneezing, laughing? Yes see E/M note Do you leak urine while sleeping? No Incontinence Assessment _Based on shared decision-making, no further intervention will be pursued at this time. _xThis is a chronic problem and is addressed in continuity. _Recommendations for resources, monitoring, support, safety, and surveillance were reviewed. _This warrants further evaluation at a follow-up or concurrent visit. Patient Health Self Assessment (Indicate in Comments for each red/positive response an assessment and plan for the patient) COUNSELING/PLAN/REFERRAL Have you seen a dental or orthodontic provider in the last year? Yes Do you always wear a seat belt in moving vehicles? Yes Do you exercise at least 150 minutes a week? Yes Do you consider your diet unhealthy? No Do you use tobacco? No Have you had 5 or more servings of alcohol in one day within the past year? No Do you use illegal street or prescription drugs? No Do you have a new sexual partner this year? No Are you having difficulty completing or enjoying sex? No Would you consider your overall health to be poor? No Do you feel disappointed with your life as it is? No Do you feel you have poor sleep? No Do you often feel lonely? No Do you struggle with your temper? No Does pain impact your life? Yes see E/M note Do you often feel tired during the day? No Advance Directive End of Life Discussion No qualifying data available. If no qualifying data available, choose a discussion and planning intervention below. The patient indicated that they have an Advance Directive and will submit a copy for the medical record. Advance Care Planning (ACP) Discussion Did not occur at this visit. Language Barrier/Educational Preference Barriers to Learning one year: None evident Communication Barrier Present: No Educational Needs Assessed one year: Yes Health Literacy Communication Barriers: Never Learning Preferences one year: Verbal Explanation, Printed Instructions Primary Language: [place] Medications The patients preferred pharmacy has been reviewed and confirmed. Home triamcinolone topical(triamcinolone 0.1% topical cream), 1 appl, topical, bid, 3 refills Problem List/Past Medical History Ongoing Back pain Diarrhea ED (erectile dysfunction) H/O prostate cancer H/O spinal stenosis Lumbar spinal stenosis Nevus| Status: Inactive Nocturia Resolved Carpal tunnel syndrome H/O: HTN (hypertension) Infected tick bite of abdominal wall Tobacco user Procedure/Surgical History Procedure| Service Date: 01/10/2022Excision of virginia-anal soft tissue cyst| Service Date: 2Colonoscopy| Service Date: 03/17/2020Plain X-ray lumbar spine normal| Service Date: 09/02/2019Primary posterior decompression lumbar spine and fusion| Service Date: 07/15/2017Spinal fusion| Service Date: 07/2017Colonoscopy| Service Date: 03/22/2015bnormal EMG| Service Date: 08/08/2011MRI of abdomen| Service Date: 03/21/2011Cystoscopy| Service Date: 02/27/2011Fusion of posterior lumbar spine| Service Date: 12/18/2010Surgery| Service Date: 2010Radiation| Service Date: 2008Prostatectomy| Service Date: rthroscopy Procedure History Last Reviewed by:MD Weems Dongsheng on 01/15/2024 16:04 Family History Cancer: Mother. Cancer of colon: Mother. Colon cancer..: Mother. Esophageal cancer..: Mother. Heart attack: Father. Heart disease: Father and Father. Throat cancer...: Mother. Health Status Family Member(s) Family History Last Reviewed by:MD Weems Dongsheng on 01/15/2024 16:04 Allergies NKA No Known Medication Allergies Care Team Orthopedics Dr Galaviz Audiology Dr Valentin E[facility] [place] [facility] Dermatology Dr. Zimmerman Recommendations Health Maintenance Pending(in the next year) OverDue Medicare Annual Wellness Visit due12/28/21and every 1year Adult Influenza Vaccine due10/06/23and every 1year Due Adult Social Determinants of Health Screening due01/15/24Unknown Frequency Satisfied(in the past 1 year) Satisfied Adult Influenza Vaccine on03/22/23.Satisfied by KATHERINE Jc Emma Body Mass Index on01/15/24.Satisfied by KATHERINE Hodgson Paul Health Maintenance Schedule Colorectal Cancer Screening: Completed _ Diabetes screening: Ordered _ Cholesterol screening: Ordered _ HIV Screening: Deferred _ Hepatitis C Screening: Deferred _ Lung Cancer Screening: N/A _ AAA Screening: N/A _declined Mammography: N/A _ Osteoporosis: N/A _ Prostate Cancer Screening: Ordered _ Welcome to Medicare ECG Screening: N/A _ Electronic Signature on File Electronically Reviewed/Signed by: Kristin Weems MD Author Signature Dt/Tm:01/15/2024 04:24 PM Department of Family Medicine DJ Patient Care team information Care Team Personnel Name: MD Weems Dongsheng Position: Physician - Family Med Member Role: Primary Care Provider Address: [address] [place] [address] [place] Care Team Related Persons Name: AURA BRAND
[2024-02-11] MEDS: KETOROLAC TROMETHAMINE 15 MG/ML VIAL IV SCH (16:00)
[2024-02-11] MEDS: ASCORBIC ACID 500 MG TAB PO SCH (17:41)
[2024-02-11] MEDS: TRANEXAMIC ACID / 0.7% NACL 1,000 MG/100 ML BAG IV SCH (18:21)
[2024-02-11] MEDS: SENNA 8.6 MG TAB PO SCH (20:19)
[2024-02-11] MEDS: DOCUSATE SODIUM 100 MG CAP PO SCH (20:19)
[2024-02-11] MEDS: ASPIRIN 81 MG ECTAB PO SCH (20:19)
[2024-02-11] MEDS ORDERED: SENNA 8.6 MG TAB PO SCH (21:00)
[2024-02-12 05:59] LABS: Hematocrit (blood only) 43.2 % (42.0-52.0); Mean Corpuscular Hgb Conc 34.7 g/dL (32.0-36.0); Mean Corpuscular Volume 89.3 fL (80.0-100.0); Mean Platelet Volume 9.6 fL (9.4-12.4); Platelet Count 304 K/uL (130-400); RDW Coefficient of Variation 12.5 % (11.5-14.5); Red Blood Count 4.84 M/uL (4.70-6.10)
[2024-02-12 06:15] LABS: BUN Creatinine Ratio 19.3 (10-20); Calcium 8.9 mg/dl (8.6-10.3); Creatinine Clr Calc Pharmacy 64.7 ml/min; Potassium 4.4 mmol/L (3.5-5.1)
--- NOTE | 2024-02-12 06:49 | XRay Report ---
XR knee LT 1 or 2V routine INDICATION: S/P LT TKA JTF TECHNIQUE: Radiograph of knee was acquired COMPARISON: None. FINDINGS: There is demonstration of left total knee arthroplasty with intact hardware. No signs of failure or disruption seen. Air is noted in the joint space and soft tissue planes. Surgical hanny are seen in the overlying skin. Soft tissue swelling is seen anteriorly. Impressions: 1. Status post left knee arthroplasty with no signs of failure or disruption. 2. Postoperative changes, as described. Electronically signed by Jay Rizvi 02-12-2024 06:49 AM
[2024-02-12 07:06] VITALS: BP 137/79; PULSE 74; RESP 18; TEMP 97.9; O2SAT 96
--- NOTE | 2024-02-12 07:07 | Orthopedic Progress Note ---
Date of Service February 12, 2024 Assessment & Plan (1) Status post total left knee replacement: Pain reasonably controlled with current plan PT/OT wbat dvt prophylaxis: teds, scd's, aspirin d/c planning: home with home health today after therapy follow up in approx 2 weeks will discuss with Dr Guillaume Ley .78 year old patient POD 1 from left tka. Doing fairly well today. Having some knee pain, worse with movement. No other complaints at this time. Review of Systems All systems reviewed & are unremarkable except as noted in HPI & below. Physical Exam . alert and oriented. NAD. VSS labs reviewed. wbc slightly elevated, likely related to surgery Left leg: dressing clean, dry, intact. Very small amount of blood on dressing anterior. Able to do straight leg raise. Able to dorsiflex and plantarflex. NVI Results & Data Results & Data Laboratory Results . Diagnostic Findings . PG Care Time/CCT Total # of Minutes Spent Total Time Spent with Patient: Total time spent is greater than 50% in coordination of care (as documented) at patient's floor/unit and/or counseling patient: Coding Level of Care Code 86681 Post Operative Follow-Up Diagnoses Status post total left knee replacement Z96.652
[2024-02-12] MEDS: dexAMETHasone 10 MG in SYRINGE 0 ML IV SCH (08:03)
[2024-02-12] MEDS: TAMSULOSIN HCL 0.4 MG CAP PO SCH (08:04)
[2024-02-12] MEDS: CEROVITE ADV FORMULA TAB PO SCH (08:04)
[2024-02-12] MEDS ORDERED: MULTIVITAMIN TAB PO SCH (09:00)
[2024-02-12] MEDS: INFLUENZA VACC TS2024-25(65y+)/PF (IIV3) 0.5mL Syr IM ONE (11:08)
--- NOTE | 2024-02-14 14:34 | Discharge Summary ---
Date of Service February 14, 2024 Admission HPI (Per Admitting) . Patient is a 78-year-old gentleman who now presents for surgical treatment of his left knee. He has about a year and a half history of persistent progressive increasing left knee pain discomfort and swelling unresponsive to conservative care. Has had several aspirations and injections which have provided pretty minimal relief. Pain is mostly medial but some global pain. He is limping more as time goes on. He would like to have his knee fixed. Admission Exam (Per Admitting) . Physical examination was a pleasant middle-age male. Examination left knee reveal patient walks with a slight bit of a limp. Got a small knee effusion. Tender with medial joint line. Range of motion is full extension to 125 degrees of flexion. No particular pain with hip motion. No instability. Negative straight leg raise. He is neurologically intact. Principal Diagnosis Same as "Discharge Diagnosis" noted below under Discharge Instructions. Discharge Exam . alert and oriented. NAD. VSS labs reviewed. wbc slightly elevated, likely related to surgery Left leg: dressing clean, dry, intact. Very small amount of blood on dressing anterior. Able to do straight leg raise. Able to dorsiflex and plantarflex. NVI Discharge Data Procedures Performed Operation Date: 02/11/24 10:40 Actual Procedures p Left Total Knee Arthroplasty, Cemented(Left) - Raghav Galaviz MD Ordered Studies 02/11/24 05:00 US - OR guided needle placemen Routine Hospital Course (1) Status post total left knee replacement: This is a 78 year old patient admitted on 02/11/24 and underwent total knee arthroplasty. He tolerated the procedure well and there were no complications. Transferred to the PACU post op and later to the orthopedic floor for further care. He was given ancef for antibiotic prophylaxis. He was also given ANA stockings, SCDs, and aspirin for DVT prophylaxis. Hemoglobin, hematocrit, and vital signs were monitored during his hospital stay and remained stable. Did not require any blood transfusions. There were no complications during his hospital stay. By post op day #1 the patient was tolerating a regular diet, pain was reasonably controlled with oral pain medicine, and he was participating in physical therapy. On post op day #1 the patient was discharged home and set up with home health care. He was given printed discharge instructions including prescriptions for extra strength tylenol, aspirin, cefadroxil, ketorolac, zofran, oxycodone, senokot, and flomax. Continue physical therapy, weight bearing as tolerated. Continue ANA stockings. Follow up approximately 2 weeks post op or sooner if there are problems or concerns. Discharge Plan Discharge Items Patient Disposition: Home - Home Health Services Reason For Visit: LEFT KNEE REPLACEMENT Discharge Diagnosis: Left Knee Replacement Activity: Per Instructions section Weightbearing: Full weightbearing Non-emergency contact: Surgeon Call non-emergency contact if: you have any medication questions Follow-up/Referrals: Kristin Weems [Primary Care Provider] - Diet: Regular Addtl Attending Provider Instructions: ACTIVITY RECOMMENDATIONS: Diet: * You may resume previous diet. Physical Therapy: * You will go to physical therapy three times each week for four to six weeks after your surgery in order to regain your knee range of motion and to retrain your knee to work properly. * It is just as important to make sure you are getting your knee perfectly straight as it is to regain your knee bend. * Taking a pain pill an hour before therapy can help you have a more productive and comfortable therapy session. Home Exercise: * You were shown a series of exercises (heel props, heel slides, etc.) in the hospital. Do these exercises three to four times each day including the exercises you were shown in physical therapy. Walking: * Get up and walk several times each day. For the first four weeks, try not to stand or walk for more than one hour at a time. If you do stand or walk for more than one hour, you will not hurt anything, but your knee and leg will likely swell. * As you feel comfortable, you may change from the walker or crutches to a cane and then to independent walking. MEDICATIONS: New Medicine: * You will likely be taking one or more of these medications: 1. Oxycodone - A quick and shorter-acting pain medication. Take one to two tablets every six hours to lessen your pain. 2. Aspirin - Thins your blood to lessen the chance of forming a blood clot. * The most common side effects of pain medicine and iron are nausea and constipation. If nausea or constipation is too much of a problem or if you have any questions about your new medicines or doses, call [facility] at . We will try to help you manage these issues. "VERY IMPORTANT TO READ AND REVIEW" Pain: * The immediate post-operative period after knee replacement surgery is often quite painful. * You are given a prescription for pain medicine. You should take it, as directed, when you need it, especially before physical therapy and before going to bed. Pain that interferes with sleep is very common and can last several months. * You will likely need pain medicine for the first four to six weeks. It will not stop all of the pain. The pain will lessen and as you feel better, you may change to milder pain medicine such as Tylenol. * The most common side effects of pain medicine are nausea and constipation, so don't take more than you need. SPECIAL CARE INSTRUCTIONS: TEDs/Elastic Stockings: * The white elastic stockings help limit swelling and prevent blood clots from forming in your legs. The more you wear them, the more they work. * Wear them for six weeks after knee replacement surgery and four weeks after partial knee replacement. Incision Site Care: * Remove dressing postoperative day 2 and then shower. Keep direct shower pressure off the incision site. * After showering, cover hanny with dry gauze and change daily or more frequently if the dressing is getting saturated with drainage. * Use the ANA stockings to hold dressing in place. DO NOT apply tape on the skin. * May completely stop using bandage if wound is dry and no drainage * [place] are removed between 2 and 3 weeks post-op. If your follow-up appointment is made before 2 weeks, please have your appointment re- scheduled. It is too early to remove the hanny. Prevention of Infection: * Take antibiotics one hour before any dental cleaning, dental work, urological procedure, gastrointestinal procedure or any invasive surgery in order to prevent your new joint from getting infected. * You may get the antibiotics from the doctor performing the procedure or you may call our office at [phone] before and we will call in a prescription to the pharmacy of your choice. Things to Watch For: * Drainage from the incision site that occurs more than one week after your surgery. * Severely increased knee/leg pain or swelling. * Increased redness at the incision site. * Fever above 102 degrees Fahrenheit. * Unusual chest pain or shortness of breath. * Unusual pain or burning with urination. Call [facility] at [phone] with any of the above problems or if you have any questions about your medicines or recovery. FOLLOW UP VISIT: Make an appointment to see your doctor for approximately two weeks after surgery for a progress check and staple removal by calling the office at [phone]. Pending Studies at Discharge: No Stand-Alone Forms: My [facility], Pain - Opioid Pain Management, Sm oking Cessation Medications and DC Order Prescriptions: Continued oxycodone 5 mg tablet 5 - 10 mg PO Q6 PRN (Reason: pain) Qty: 40 0RF Rx Instructions: Take as needed for pain ondansetron 4 mg tablet,disintegrating 4 mg PO Q8 PRN (Reason: nausea) Qty: 20 1RF Rx Instructions: Take as needed for nausea ketorolac 10 mg tablet 10 mg PO Q8H 5 Days Qty: 15 0RF Rx Instructions: Take 3 times per day with food for 5 days to lessen pain and swelling. sennosides [Senokot] 8.6 mg tablet 8.6 mg PO BID 14 Days Qty: 28 0RF Rx Instructions: Take two times a day to prevent/treat constipation acetaminophen [Tylenol Extra Strength] 500 mg tablet 1,000 mg PO TID 30 Days Qty: 180 0RF Rx Instructions: Take 3 times per day to lessen pain. aspirin [Levy Low Dose Aspirin] 81 mg tablet,delayed release (DR/EC) 81 mg PO BID 45 Days Qty: 90 0RF Rx Instructions: Take to prevent blood clots. cefadroxil 500 mg capsule 500 mg PO BID 7 Days Qty: 14 0RF Rx Instructions: Take 1 cap twice a day to prevent infection tamsulosin [Flomax] 0.4 mg capsule 0.4 mg PO DAILY Qty: 7 0RF Rx Instructions: Begin night BEFORE surgery to prevent urinary retention triamcinolone acetonide 0.1 % Cream 1 applic TOPICAL BID PRN (Reason: tick bites) [id number]-[id number] Tablet 1 tab PO QAM Bio-Guard 1 dose PO UD PRN (Reason: gerd) Patient Comments: otc Discontinued ibuprofen [Advil] 200 mg Tablet 200 mg PO Q6H PRN (Reason: Pain) Krames/Other Patient Handouts: DVT Post Op Prevention, Total Knee Replacement, Knee Replacement Total Dc Admission Data Admit Date/Time: 02/11/24 12:57 Attending Provider: Raghav Galaviz Admit Provider: Raghav Galaviz Primary Care Provider: Kristin Weems Other Providers: [facility] Other Interventions: Discharge Summary Assessment (RN) Last Done: 02/12/24 09:02
== END 2024-02-12 13:09 | disposition home health service (06) ==
LOC: ASU 08:26 → 3E 08:26
DX: M17.0 Bilateral primary osteoarthritis of knee; F17.290 Nicotine dependence, other tobacco product, uncomplicated; K21.9 Gastro-esophageal reflux disease without esophagitis